=== PATIENT | female | born 2000 | race Caucasian/White ===

== ENCOUNTER 2020-10-12 13:42 | Emergency (ER) | payer OTHER, SELFPAY ==
--- NOTE | 2020-10-12 13:55 | ED.GENADULT ---
HPI - General Adult General Chief complaint: Upper Respiratory Infection Stated complaint: sore throat Time Seen by Provider: 10/12/20 13:51 Source: patient Mode of arrival: ambulatory Limitations: no limitations History of Present Illness HPI narrative: 20 y/o female. PMH includes: None reported per client. Presents to [facility] with acute complaints of sore throat symptoms, non-productive cough, and nasal discharge for past 72 hours. Client reports to have had low grade fever at home 1 day ago. She adds that she has had Strep Throat a lot as a child . No DEL RIO, dizziness. No chills, body aches. No dyspnea, dysphagia, or involuntary drooling. She does report to have been around ill contact at work in past 1 week, whom has been now tested for Covid 19 virus. No additional acute c/o upon PE. Related Data Home Medications Medication Instructions Recorded Confirmed bupropion HCl 150 mg PO QAM 10/12/20 10/12/20 clonazepam 0.5 mg PO HS PRN 10/12/20 10/12/20 fexofenadine 180 mg PO DAILY 10/12/20 10/12/20 hydroxyzine HCl 50 mg PO BID 10/12/20 10/12/20 medroxyprogesterone [Depo-Provera 150 mg IM [id number] 10/12/20 10/12/20 Contraceptive] methylphenidate HCl 20 mg PO DAILY 10/12/20 10/12/20 montelukast 10 mg PO DAILY 10/12/20 10/12/20 Allergies Allergy/AdvReac Type Severity Reaction Status Date / Time Penicillins Allergy Hives Verified 10/12/20 14:07 Review of Systems Review of Systems: Narrative: CONSTITUTIONAL: Denies fever, chills, sweats. EYES: Denies visual changes, redness, discharge. ENT: Positive Rhinorrhea and sore throat. No otalgia. CARDIOVASCULAR: Denies chest pain, palpitations, edema. RESPIRATORY: Denies dyspnea, wheezing. Positive Dry cough GASTROINTESTINAL: Denies abdominal pain, nausea, vomiting, diarrhea. GENITOURINARY: Denies dysuria, hematuria, abnormal discharge SKIN: Denies rash or itching. MUSCULOSKELETAL: Denies acute back pain, joint pain, or myalgia. NEUROLOGIC: Denies numbness, or focal weakness. PSYCHIATRIC: Denies anxiety or depression. All systems reviewed & are unremarkable except as noted in HPI and below (HPI) PMFSH Comments At the time of my signature I agree with nursing past medical history, surgical, social, and family history. There is no relevant family history pertinent to the presenting complaint. Exam Narrative: Exam Narrative: GENERAL: This is a well-nourished, well-developed patient, in no apparent distress. HEAD: normocephalic, atraumatic. EYES: PERRL. Sclera clear/white. Vision is grossly intact. EARS: External ears normal, auditory canals clear and without drainage, TMs normal without perforation. Hearing grossly intact. NOSE: External nose normal. No deformity. Positive Rhinorrhea. THROAT: Mucous membranes moist, posterior pharynx is erythematous, without definitive exudate. No airway swelling. NECK: Neck supple, non-tender without lymphadenopathy, masses or thyromegaly. CARDIOVASCULAR: Regular rate and rhythm without murmurs, gallops, or rubs. RESPIRATORY: Clear to auscultation. Breath sounds equal bilaterally. No wheezes, rales, or rhonchi. GASTROINTESTINAL: Abdomen soft, non-tender, nondistended. Bowel sounds are active. No hepato-splenomegaly, or palpable masses. No guarding. SKIN: warm, intact with no suspicious lesions or rash, good texture and turgor. NEURO: awake, alert, and oriented to person, place and time. There were no obvious focal neurologic abnormalities. Steady gait EXTREMITIES: Normal range of motion. No edema. No calf tenderness. Negative Homans sign bilaterally. BACK: Nontender without deformity or crepitance. No flank tenderness. NEURO: Alert and oriented x4, GCS 15. No focal neurological deficits. Course Course Emergency Course: Diagnostic testing, rationale, and results have been reviewed with client. Rapid Influenza is negative. However, her Rapid strep testing is positive in the [facility] today. OP POC, AVS & Medication instruct
[2020-10-12 14:03] VITALS: BP 123/85; PULSE 110; RESP 20; TEMP 37.1; O2SAT 98
== END 2020-10-12 14:35 | disposition home or self-care (01) ==
PROVIDERS: Emergency Provider Nurse Practitioner Adult Health; PCP Nurse Practitioner Psychiatric/Mental Health
DX: J02.0 Streptococcal pharyngitis (principal); Z20.828 Contact with and (suspected) exposure to other viral communicable diseases; J45.909 Unspecified asthma, uncomplicated; F41.9 Anxiety disorder, unspecified; F98.8 Other specified behavioral and emotional disorders with onset usually occurring in childhood and adolescence
CPT/HCPCS: 87081; 87804; 87880; 99203; G0463

== ENCOUNTER 2020-10-13 07:05 | Outpatient (NON) | payer OTHER, SELFPAY ==
[2020-10-14 12:35] LABS: SARS-CoV-2 RNA PCR Negative
== END 2020-10-13 07:06 ==
PROVIDERS: PCP Nurse Practitioner Psychiatric/Mental Health; Visit Provider Nurse Practitioner Adult Health
DX: Z20.828 Contact with and (suspected) exposure to other viral communicable diseases (principal)
CPT/HCPCS: 87635; C9803; U0003